=== PATIENT | female | born 1990 | race Asian ===

== ENCOUNTER 2020-07-01 15:57 | Emergency (ER) | payer OTHER ==
[2020-07-01 17:22] LABS: HEMOGLOBIN 9.8 gm/dl (12.3-15.3); RED BLOOD COUNT 3.47 M/UL (4.00-5.10); WHITE BLOOD COUNT 15.3 K/UL (4.5-11.0)
[2020-07-01] MEDS ORDERED: OMNICEF 300 MG300 MG PO (23:37)
[2020-07-01] MEDS ORDERED: ZOFRAN ODT 4 MG4 MG PO (23:37)
== END 2020-07-02 00:41 | disposition home or self-care (01) ==
LOC: ER1 15:57
PROVIDERS: Physician Assistant
DX: N39.0 Urinary tract infection, site not specified (principal); J18.9 Pneumonia, unspecified organism; N28.9 Disorder of kidney and ureter, unspecified; E11.9 Type 2 diabetes mellitus without complications; R47.81 Slurred speech; Z20.822 Contact with and (suspected) exposure to COVID-19; Z90.49 Acquired absence of other specified parts of digestive tract; F17.200 Nicotine dependence, unspecified, uncomplicated; Z87.442 Personal history of urinary calculi
CPT/HCPCS: 0240U; 71045; 80048; 80053; 80307; 81001; 83605; 84703; 85025; 87040; 87077; 87081; 87086; 87186; 87880; 96365; 96375; 99285; J0696; J1885; J2405; J7030; J7040